=== PATIENT | female | born 1990 | race Caucasian/White ===

== ENCOUNTER 2016-12-08 12:33 | Emergency (ER) | payer SELFPAY ==
[~2016-12-08] VITALS: Ht 175.3 cm; Wt 64.0 kg
[2016-12-08] MEDS ORDERED: SODIUM CHLOR 0.9% 1000 ML INJ 1,000 ML IV ONE (12:40)
[2016-12-08 12:44] VITALS: BP 126/78; PULSE 115; RESP 18; TEMP 98.1; O2SAT 98
[2016-12-08] MEDS ORDERED: SODIUM CHLORIDE 0.9% FLUSH 10 ML FLUSH IVF PRN (12:45)
--- NOTE | 2016-12-08 12:49 | PD ---
HPI Chief Complaint: overdose Time Seen by Provider: 12:40 Travel History International Travel<30 days: No Contact w/Intl Traveler<30days: No History of Present Illness HPI 26 YO F with PMH of IVDA presents to the ED for evaluation after overdose. Patient admits to injecting "$20 of heroin" this morning. She states that she has been in recovery, using Suboxone by prescription for the last 2 months, but has been buying it on the street for an additional 2 months. Per EMS report the patient was cyanotic, apneic, required rescue breathing on their arrival. She became responsive and alert spontaneously over the course of transportation. On presentation the patient is tearful, alert, oriented. She states this was an accidental overdose. She denies SI, headache, dizziness, vision changes, fevers , chills, CP, palpitations, SOB, abdominal pain, N/V, dysuria, risk of . LMP 11/28/16. She denies alcohol or other illicit substance use. She is a smoker. The patient is very concerned that her children will be taken away if CPS finds out of today's events. Her children are living in foster care as the patient has an open DCF case. PFSH Past Medical History ADHD: Yes Anemia: Yes (DURING 2 YEARS AGO) Arthritis: No Asthma: Yes Autoimmune Disease: No Blood Disorders: Yes Bipolar Disorder: Yes (PAST SELF INFLICTED CUTTING, THREATS TO KILL MOTHER) Anxiety: Yes Depression: Yes Heart Rhythm Problems: No Cancer: No Cardiovascular Problems: No High Cholesterol: No Chemotherapy: No Chest Pain: No Congestive Heart Failure: No Cerebrovascular Accident: No Diabetes: No Diminished Hearing: No Endocrine: No Glaucoma: No Genitourinary: No Headaches: Yes (REPORTS FREQUENT HEADACHES IN THE PAST) Hepatitis: No Hiatal Hernia: No Hypertension: No Immune Disorder: No Musculoskeletal: No Neurologic: No Psychiatric: Yes (ADHD, Bipolar,substance abuse) Reproductive: No Respiratory: No Immunizations Current: Yes Migraines: No Radiation Therapy: No Seizures: No Sickle Cell Disease: No Thyroid Disease: No Ulcer: No : 6 Para: 3 Miscarriage: 3 : 2 Dilation and Curettage (D&C): Yes Past Surgical History Abdominal Surgery: No AICD: No Appendectomy: No Arteriovenous Shunt: No Cardiac Surgery: No Section: No Cholecystectomy: No Ear Surgery: No Endocrine Surgery: No Eye Surgery: No Genitourinary Surgery: No Gynecologic Surgery: No Insulin Pump: No Joint Replacement: No Oral Surgery: No Pacemaker: No Thoracic Surgery: No Other Surgery: No Social History Alcohol Use: Yes (occ) Tobacco Use: Yes (one pack per day) Substance Use: Yes (opiates, benzos, cocaine, marijuana) Allergies-Medications (Allergen,Severity, Reaction): Coded Allergies: Sulfa (Sulfonamide Antibiotics) (Unverified Allergy, Unknown, 12/08/16) Reported Meds & Prescriptions Reported Meds & Active Scripts Active Reported Suboxone Sublingual Film (Buprenorphine-Naloxone Sublingual Film) 8-2 Mg Film 1 Film SL Unique ID number required: Review of Systems Except as stated in HPI: all other systems reviewed are Neg Physical Exam Narrative GENERAL: Well-nourished, well-developed tearful white female in no acute distress.. SKIN: Focused skin assessment warm/dry. Multiple tattoos. HEAD: Normocephalic. EYES: No scleral icterus. No injection or drainage. Pupils pinpoint bilaterally. NECK: Supple, trachea midline. No JVD or lymphadenopathy. CARDIOVASCULAR: Regular rate and rhythm without murmurs, gallops, or rubs. 2+ DP and radial pulses bilaterally. RESPIRATORY: Breath sounds clear and equal bilaterally. No accessory muscle use. GASTROINTESTINAL: Abdomen soft, non-tender, nondistended. No palpable masses. Active bowel sounds. MUSCULOSKELETAL: No cyanosis, or edema. Noted to walk with a normal gait. NEUROLOGICAL: Awake and alert. Cranial nerves II through XII intact. Motor and sensory grossly within normal limits. Five out of 5 muscle strength in all muscle groups. Normal speech. BACK: Nontender without obvious deformity. No CVA tenderness. Data Data Last Documented VS Vital Signs Date Time Temp Pulse Resp B/P (MAP) Pulse Ox O2 Delivery O2 Flow Rate FiO2 12/08/16 16:58 98.1 94 13 112/73 (86) 100 Room Air 12/08/16 14:16 3.00 Orders Orders Electrocardiogram (12/08/16 12:40) Complete Blood Count With Diff (12/08/16 12:40) Comprehensive Metabolic Panel (12/08/16 12:40) Urinalysis - C+S If Indicated (12/08/16 12:40) Chest, Single Ap (12/08/16 12:40) Arterial Blood Gas (Abg) (12/08/16 12:40) Blood Glucose (12/08/16 12:40) Iv Access Insert/Monitor (12/08/16 12:40) Ecg Monitoring (12/08/16 12:40) Oximetry (12/08/16 12:40) Sodium Chloride 0.9% Flush (Ns Flush) (12/08/16 12:45) Sodium Chlor 0.9% 1000 Ml Inj (Ns 1000 M (12/08/16 12:40) Call Poison Control (12/08/16 12:40) Drug Screen, Random Urine (12/08/16 12:40) Alcohol (Ethanol) (12/08/16 12:40) Salicylates (Aspirin) (12/08/16 12:40) Tylenol (Acetaminophen) (12/08/16 12:40) Ed Urine Pregnancytest Poc (12/08/16 12:40) Diet Regular Basic (12/08/16 Lunch) Labs Laboratory Tests Test 12/08/16 12:54 12/08/16 13:00 12/08/16 19:05 Blood Gas Puncture Site RT BRACHIAL Blood Gas Patient Temperature 98.6 Blood Gas HCO3 26 mmol/L Blood Gas Base Excess 1.1 mmol/L Blood Gas Oxygen Saturation 87 % Arterial Blood pH 7.38 Arterial Blood Partial Pressure CO2 45 mmHg Arterial Blood Partial Pressure O2 63 mmHG Arterial Blood Oxygen Content 16.1 Vol % Arterial Blood Carboxyhemoglobin 4.4 % Arterial Blood Methemoglobin 0.5 % Blood Gas Hemoglobin 13.2 G/DL Blood Gas Inspired Oxygen 21 % White Blood Count 6.2 TH/MM3 Red Blood Count 4.47 MIL/MM3 Hemoglobin 13.2 GM/DL Hematocrit 38.5 % Mean Corpuscular Volume 86.2 FL Mean Corpuscular Hemoglobin 29.6 PG Mean Corpuscular Hemoglobin Concent 34.3 % Red Cell Distribution Width 12.8 % Platelet Count 270 TH/MM3 Mean Platelet Volume 7.7 FL Neutrophils (%) (Auto) 53.3 % Lymphocytes (%) (Auto) 34.8 % Monocytes (%) (Auto) 7.4 % Eosinophils (%) (Auto) 3.7 % Basophils (%) (Auto) 0.8 % Neutrophils # (Auto) 3.3 TH/MM3 Lymphocytes # (Auto) 2.1 TH/MM3 Monocytes # (Auto) 0.5 TH/MM3 Eosinophils # (Auto) 0.2 TH/MM3 Basophils # (Auto) 0.0 TH/MM3 CBC Comment DIFF FINAL Differential Comment Blood Urea Nitrogen 18 MG/DL Creatinine 0.76 MG/DL Random Glucose 91 MG/DL Total Protein 7.5 GM/DL Albumin 4.0 GM/DL Calcium Level 8.7 MG/DL Alkaline Phosphatase 102 U/L Aspartate Amino Transf (AST/SGOT) 22 U/L Alanine Aminotransferase (ALT/SGPT) 33 U/L Total Bilirubin 0.3 MG/DL Sodium Level 142 MEQ/L Potassium Level 3.6 MEQ/L Chloride Level 107 MEQ/L Carbon Dioxide Level 26.7 MEQ/L Anion Gap 8 MEQ/L Estimat Glomerular Filtration Rate 93 ML/MIN Salicylates Level 2.8 MG/DL Acetaminophen Level LESS THAN 2.0 MCG/ML Ethyl Alcohol Level LESS THAN 3 MG/DL Urine Color YELLOW Urine Turbidity HAZY Urine pH 5.5 Urine Specific [place] 1.037 Urine Protein 30 mg/dL Urine Glucose (UA) NEG mg/dL Urine Ketones TRACE mg/dL Urine Occult Blood NEG Urine Nitrite NEG Urine Bilirubin NEG Urine Urobilinogen LESS THAN 2.0 MG/DL Urine Leukocyte Esterase NEG Urine RBC 2 /hpf Urine WBC 6 /hpf Urine Squamous Epithelial Cells 2 /hpf Urine Amorphous Sediment RARE Urine Bacteria RARE /hpf Urine Mucus MANY /lpf Microscopic Urinalysis Comment CULT NOT INDICATED Urine Opiates Screen POS Urine Barbiturates Screen NEG Urine Amphetamines Screen POS Urine Benzodiazepines Screen NEG Urine Cocaine Screen POS Urine Cannabinoids Screen POS MDM Medical Decision Making Medical Screen Exam Complete: Yes Emergency Medical Condition: Yes Differential Diagnosis accidental overdose versus opioid abuse versus IVDA versus acute opioid intoxication versus Narrative Course 26 YO F with PMH of IVDA presents to the ED for evaluation after overdose. Patient admits to injecting "$20 of heroin" this morning. She states that she has been in recovery, using Suboxone by prescription for the last 2 months, but has been buying it on the street for an additional 2 months. Per EMS report the patient was cyanotic, apneic, required rescue breathing on their arrival. She became responsive and alert spontaneously over the course of transportation. On presentation the patient is tearful, alert, oriented. She states this was an accidental overdose. She denies SI, headache, dizziness, vision changes, fevers , chills, CP, palpitations, SOB, abdominal pain, N/V, dysuria, risk of . LMP 11/28/16. The patient is very concerned that her children will be taken away if CPS finds out of today's events. Her children are living in foster care as the patient has an open DCF case. Vitals reviewed. Physical exam reveals an tearful, alert white female in no acute distress. Pupils pinpoint bilaterally. No focal neuro deficits. No appreciable M/R/G. Chest CTAB. Abdomen soft, nontender. No CVA tenderness. No lower extremity edema. IV was established. Patient was administered 1 L normal saline bolus. EKG: Rate 97, sinus rhythm. NC interval 135, QRS 88, QTC 405. Normal axis. No acute ST changes. Reviewed by Dr. Ordonez. ABG: PH 7.38 HCO3 26 PCO2 245 O2 sat 87%. Patient was placed on 2L O2 NC for 2 hours. CXR: No acute disease per radiology read. No concerning abnormalities of the CBC or CMP. Salicylates 2.8. Acetaminophen less than 2. EtOH less than 3. ED bedside test negative. UA: No culture indicated. Tox screen: Positive for opiates, amphetamines, cocaine, cannabinoids Poison control recommends monitoring the patient for 8 hours. On recheck the patient is regretful, tearful. She has no somatic complaints. O2 discontinued, sats 90% and above ORA. Patient was observed for 8 hours in the emergency room. Vitals remained stable. She is instructed to follow-up with [facility] for outpatient treatment of substance abuse. She is stable and discharged home. Diagnosis Primary Impression: Accidental overdose of heroin Qualified Codes: T40.1X1A - Poisoning by heroin, accidental (unintentional), initial encounter Additional Impression: Substance abuse Referrals: [facility] (Out patient) [facility] Patient Instructions: General Instructions, Methamphetamine Abuse (GEN), Narcotic Abuse (ED) Additional Instructions: Rest, hydrate. Return to normal, gentle activities as tolerated. Follow-up with [facility], [place] for outpatient treatment of substance abuse. Return to the ED for any urgent or emergent echo condition. Disposition: 01 DISCHARGE HOME Condition: Stable Jenn Espinoza Dec 08, 2016 12:49
[2016-12-08 13:05] VITALS: O2SAT 96
[2016-12-08 13:13] LABS: BLOOD GAS BASE EXCESS 1.1 mmol/L (-2-2); BLOOD GAS CARBOXYHEMOGLOBIN 4.4 % (0-4); BLOOD GAS HCO3 26 mmol/L (22-26); BLOOD GAS METHEMOGLOBIN 0.5 % (0-2); BLOOD GAS O2 HGB SATURATION 87 % (90-100); BLOOD GAS OXYGEN CONTENT 16.1 Vol % (12.0-20.0); BLOOD GAS PCO2 45 mmHg (38-42); BLOOD GAS PO2 63 mmHG (61-120); BLOOD GAS TOTAL HGB 13.2 G/DL (12.0-16.0); TEMP CORR TO 98.6
[2016-12-08 13:14] LABS: CRITICAL VALUE YES; DRAW SITE RT BRACHIAL; FIO2 21 %; NUMBER OF ARTERIAL PUNCTURES 1; STAT YES; ULNAR PULSE PRESENT
[2016-12-08 13:15] VITALS: O2SAT 94
[2016-12-08 13:48] LABS: AUTOMATED NEUTROPHIL # 3.3 TH/MM3 (1.8-7.7); BASOPHIL % 0.8 % (0.0-2.0); EOSINOPHIL # 0.2 TH/MM3 (0-0.4); EOSINOPHIL % 3.7 % (0.0-4.0); HEMATOCRIT 38.5 % (35.0-46.0); HEMO FLAGS DIFF FINAL; LYMPH % 34.8 % (9.0-44.0); LYMPHOCYTE # 2.1 TH/MM3 (1.0-4.8); MEAN CELL VOLUME 86.2 FL (80.0-100.0); MEAN CORPUSCULAR HEMOGLOBIN 29.6 PG (27.0-34.0); MEAN CORPUSCULAR HGB CONC 34.3 % (32.0-36.0); MONO % 7.4 % (0.0-8.0); NEUT % 53.3 % (16.0-70.0); PLATELET COUNT 270 TH/MM3 (150-450); RED BLOOD COUNT 4.47 MIL/MM3 (4.00-5.30); RED CELL DISTRIBUTION WIDTH 12.8 % (11.6-17.2); WHITE BLOOD COUNT 6.2 TH/MM3 (4.0-11.0)
[2016-12-08 14:01] LABS: ANION GAP 8 MEQ/L (5-15); AST (GOT) 22 U/L (15-37); BICARBONATE 26.7 MEQ/L (21.0-32.0); BLOOD UREA NITROGEN 18 MG/DL (7-18); CHLORIDE 107 MEQ/L (98-107); GLOMERULAR FILTRATION RATE 93 ML/MIN (>89); POTASSIUM 3.6 MEQ/L (3.5-5.1); SODIUM (NA) 142 MEQ/L (136-145)
[2016-12-08 14:05] LABS: ACETAMINOPHEN LESS THAN 2.0 MCG/ML (10.0-30.0); ALKALINE PHOSPHATASE 102 U/L (45-117); ALT (GPT) 33 U/L (10-53); TOTAL BILIRUBIN ADULT 0.3 MG/DL (0.2-1.0)
[2016-12-08] MEDS ORDERED: SUBO8MIS SL (14:08)
[2016-12-08 14:10] LABS: ALCOHOL LESS THAN 3 MG/DL (0-5)
--- NOTE | 2016-12-08 14:24 | RADRPT ---
EXAM DATE/TIME: 12/08/2016 13:21 [place] COMPARISON: No previous studies available for comparison. INDICATIONS : Evaluate lung status. Possible overdose. MEDICAL HISTORY : None. SURGICAL HISTORY : None. ENCOUNTER: Initial ACUITY: 1 day PAIN SCORE: 0/10 LOCATION: Bilateral chest FINDINGS: A single view of the chest demonstrates the lungs to be symmetrically aerated without evidence of mas s, infiltrate or effusion. The cardiomediastinal contours are unremarkable. Osseous structures are intact. CONCLUSION: No acute disease. Jim Dorado MD FACR on December 08, 2016 at 14:22 Board Certified Radiologist. This report was verified electronically.
[2016-12-08 16:58] VITALS: BP 112/73; PULSE 94; RESP 13; TEMP 98.1; O2SAT 100
--- NOTE | 2016-12-08 17:51 | PD ---
Data Data Last Documented VS Vital Signs Date Time Temp Pulse Resp B/P (MAP) Pulse Ox O2 Delivery O2 Flow Rate FiO2 12/08/16 16:58 98.1 94 13 112/73 (86) 100 Room Air 12/08/16 14:16 3.00 Orders Orders Electrocardiogram (12/08/16 12:40) Complete Blood Count With Diff (12/08/16 12:40) Comprehensive Metabolic Panel (12/08/16 12:40) Urinalysis - C+S If Indicated (12/08/16 12:40) Chest, Single Ap (12/08/16 12:40) Arterial Blood Gas (Abg) (12/08/16 12:40) Blood Glucose (12/08/16 12:40) Iv Access Insert/Monitor (12/08/16 12:40) Ecg Monitoring (12/08/16 12:40) Oximetry (12/08/16 12:40) Sodium Chloride 0.9% Flush (Ns Flush) (12/08/16 12:45) Sodium Chlor 0.9% 1000 Ml Inj (Ns 1000 M (12/08/16 12:40) Call Poison Control (12/08/16 12:40) Drug Screen, Random Urine (12/08/16 12:40) Alcohol (Ethanol) (12/08/16 12:40) Salicylates (Aspirin) (12/08/16 12:40) Tylenol (Acetaminophen) (12/08/16 12:40) Ed Urine Pregnancytest Poc (12/08/16 12:40) Diet Regular Basic (12/08/16 Lunch) Labs Laboratory Tests Test 12/08/16 12:54 12/08/16 13:00 Blood Gas Puncture Site RT BRACHIAL Blood Gas Patient Temperature 98.6 Blood Gas HCO3 26 mmol/L Blood Gas Base Excess 1.1 mmol/L Blood Gas Oxygen Saturation 87 % Arterial Blood pH 7.38 Arterial Blood Partial Pressure CO2 45 mmHg Arterial Blood Partial Pressure O2 63 mmHG Arterial Blood Oxygen Content 16.1 Vol % Arterial Blood Carboxyhemoglobin 4.4 % Arterial Blood Methemoglobin 0.5 % Blood Gas Hemoglobin 13.2 G/DL Blood Gas Inspired Oxygen 21 % White Blood Count 6.2 TH/MM3 Red Blood Count 4.47 MIL/MM3 Hemoglobin 13.2 GM/DL Hematocrit 38.5 % Mean Corpuscular Volume 86.2 FL Mean Corpuscular Hemoglobin 29.6 PG Mean Corpuscular Hemoglobin Concent 34.3 % Red Cell Distribution Width 12.8 % Platelet Count 270 TH/MM3 Mean Platelet Volume 7.7 FL Neutrophils (%) (Auto) 53.3 % Lymphocytes (%) (Auto) 34.8 % Monocytes (%) (Auto) 7.4 % Eosinophils (%) (Auto) 3.7 % Basophils (%) (Auto) 0.8 % Neutrophils # (Auto) 3.3 TH/MM3 Lymphocytes # (Auto) 2.1 TH/MM3 Monocytes # (Auto) 0.5 TH/MM3 Eosinophils # (Auto) 0.2 TH/MM3 Basophils # (Auto) 0.0 TH/MM3 CBC Comment DIFF FINAL Differential Comment Blood Urea Nitrogen 18 MG/DL Creatinine 0.76 MG/DL Random Glucose 91 MG/DL Total Protein 7.5 GM/DL Albumin 4.0 GM/DL Calcium Level 8.7 MG/DL Alkaline Phosphatase 102 U/L Aspartate Amino Transf (AST/SGOT) 22 U/L Alanine Aminotransferase (ALT/SGPT) 33 U/L Total Bilirubin 0.3 MG/DL Sodium Level 142 MEQ/L Potassium Level 3.6 MEQ/L Chloride Level 107 MEQ/L Carbon Dioxide Level 26.7 MEQ/L Anion Gap 8 MEQ/L Estimat Glomerular Filtration Rate 93 ML/MIN Salicylates Level 2.8 MG/DL Acetaminophen Level LESS THAN 2.0 MCG/ML Ethyl Alcohol Level LESS THAN 3 MG/DL MDM Supervised Visit with [facility]: Yes Narrative Course The history, exam, and medical decision-making in the associated midlevel provider note were completed with my assistance. I reviewed and agree with the findings presented. I attest that I had a [id number] encounter with the patient on the same day, and personally performed and documented my assessment and findings in the medical record. *My assessment and Findings: This is a 26-year-old female who presents to the emergency department having overdosed on heroin. When EMS arrived she was cyanotic with poor respirations and required rescue breathing. She was administered Narcan and improved. She's not required any repeat doses of Narcan here in the emergency department. Labs are all reassuring. Patient will be observed for several hours and discharged if she continues to maintain her respirations and oxygen saturation. Diagnosis Primary Impression: Accidental overdose of heroin Qualified Codes: T40.1X1A - Poisoning by heroin, accidental (unintentional), initial encounter Referrals: [facility] (Out patient) [facility] Patient Instructions: General Instructions, Narcotic Abuse (ED), Methamphetamine Abuse (GEN) Additional Instruction: Rest, hydrate. Return to normal, gentle activities as tolerated. Follow-up with [facility] for outpatient treatment of substance abuse. Return to the ED for any urgent or emergent echo condition. Disposition: 01 DISCHARGE HOME Condition: Stable Nikole Ordonez MD Dec 08, 2016 17:51
[2016-12-08 19:42] LABS: BACTERIA, URINE RARE /hpf; BLOOD, URINE NEG (NEG); COMMENT (UR) CULT NOT INDICATED; CULTURE IF INDICATED CULT NOT INDICATED; GLUCOSE,URINE NEG (NEG); KETONE, URINE TRACE mg/dL (NEG); MUCUS URINE MANY /lpf (OCC); NITRITE,URINE NEG (NEG); PH, URINE 5.5 (5.0-8.5); SQUAMOUS EPITHELIAL CELL URINE 2 /hpf (0-5); URINE COLOR YELLOW (YELLW/STRAW)
[2016-12-08 20:15] VITALS: BP 115/66; PULSE 113; RESP 16; O2SAT 100
--- NOTE | 2016-12-10 12:25 | EKG ---
Date Performed: 12/08/2016 Time Performed: 13:23:04 PTAGE: 26 years EKG: Sinus rhythm NONSPECIFIC T-WAVE ABNORMALITY BORDERLINE ECG PREVIOUS TRACING : 06/19/2008 17.43 T-wave flattening new from the prior tracing. DOCTOR: Otoniel Garcia Interpretating Date/Time 12/10/2016 12:24:12
== END 2016-12-08 20:37 | disposition home or self-care (01) ==
LOC: NEPC 12:33
DX: T40.1X1A Poisoning by heroin, accidental (unintentional), initial encounter (principal); R94.31 Abnormal electrocardiogram [ECG] [EKG]; F90.9 Attention-deficit hyperactivity disorder, unspecified type; D64.9 Anemia, unspecified; F31.9 Bipolar disorder, unspecified; F41.9 Anxiety disorder, unspecified; F17.200 Nicotine dependence, unspecified, uncomplicated
CPT/HCPCS: 36600; 71010; 80053; 80307; 81001; 82805; 84703; 85025; 93005; 99285; J7030

== ENCOUNTER 2017-09-04 11:07 | Emergency (ER) | payer SELFPAY ==
[~2017-09-04] VITALS: Ht 172.7 cm; Wt 74.0 kg
[~2017-09-04 11:07] MED LIST: CLIN150C14 PO; SUBO8MIS SL
[2017-09-04 11:11] VITALS: BP 119/57; PULSE 106; RESP 18; TEMP 97.9; O2SAT 95
[2017-09-04] MEDS ORDERED: PREN29TA PO (11:30)
--- NOTE | 2017-09-04 11:37 | PD ---
HPI Chief Complaint: Related Problem Time Seen by Provider: 11:15 Travel History International Travel<30 days: No Contact w/Intl Traveler<30days: No Traveled to known affect area: No History of Present Illness HPI Patient is a 26-year-old heroin user who presents emergency department for decreased sensation of activity. Patient also states she has been having some pressure from her vagina and states she thinks she passed some tissue yesterday and thinks it was a mucous plug. She continues to use heroin intermittently and has been on Suboxone, recently released from prison. She states that in general she was told that she was a little bit further along and she is now and states that she was told by ultrasound in prison that her baby is not growing at the right the expected. She denies any chest pain shortness of breath vaginal bleeding extremity pain headache fevers per PFSH Past Medical History ADHD: Yes Anemia: Yes Arthritis: No Asthma: Yes Autoimmune Disease: No Blood Disorders: Yes Bipolar Disorder: Yes Anxiety: Yes Depression: Yes Heart Rhythm Problems: No Cancer: No Cardiovascular Problems: No High Cholesterol: No Chemotherapy: No Chest Pain: No Congestive Heart Failure: No Cerebrovascular Accident: No Diabetes: No Diminished Hearing: No Endocrine: No Gastrointestinal Disorders: No Glaucoma: No Genitourinary: No Headaches: Yes Hepatitis: No Hiatal Hernia: No Heparin Induced Thrombocytopen: No Hypertension: No Immune Disorder: No Implanted Vascular Access Dvce: No Musculoskeletal: No Neurologic: No Psychiatric: Yes (ADHD, Bipolar,substance abuse) Reproductive: No Respiratory: No Immunizations Current: Yes Migraines: No Radiation Therapy: No Seizures: No Sickle Cell Disease: No Thyroid Disease: No Ulcer: No ?: LMP: 05/10/17 : 6 Para: 3 Miscarriage: 3 : 2 Dilation and Curettage (D&C): Yes Past Surgical History Abdominal Surgery: No AICD: No Appendectomy: No Arteriovenous Shunt: No Cardiac Surgery: No Section: No Cholecystectomy: No Ear Surgery: No Endocrine Surgery: No Eye Surgery: No Genitourinary Surgery: No Gynecologic Surgery: No Insulin Pump: No Joint Replacement: No Neurologic Surgery: No Oral Surgery: No Pacemaker: No Thoracic Surgery: No Other Surgery: No Social History Alcohol Use: Yes (occ) Tobacco Use: Yes (one pack per day) Substance Use: Yes (opiates, benzos, cocaine, marijuana) Allergies-Medications (Allergen,Severity, Reaction): Coded Allergies: Sulfa (Sulfonamide Antibiotics) (Unverified Allergy, Unknown, 09/04/17) Reported Meds & Prescriptions Reported Meds & Active Scripts Active Reported Plus Iron 29-1 mg ( Vit-Iron Carbonyl) 29 Mg Iron-1 Mg Tab 1 Tab PO DAILY Review of Systems Except as stated in HPI: all other systems reviewed are Neg Physical Exam Narrative GENERAL: Well-developed well-nourished nontoxic appearing female who appears much older than stated age. SKIN: Focused skin assessment warm/dry. Several track steinberg seen peer HEAD: Atraumatic. Normocephalic. EYES: Pupils equal and round. No scleral icterus. No injection or drainage. ENT: No nasal bleeding or discharge. Mucous membranes pink and moist. NECK: Trachea midline. No JVD. CARDIOVASCULAR: Regular rate and rhythm. No murmur appreciated. RESPIRATORY: No accessory muscle use. Clear to auscultation. Breath sounds equal bilaterally. GASTROINTESTINAL: Abdomen soft, non-tender, nondistended. Hepatic and splenic margins not palpable. MUSCULOSKELETAL: No obvious deformities. No clubbing. No cyanosis. No edema. NEUROLOGICAL: Awake and alert. No obvious cranial nerve deficits. Motor grossly within normal limits. Normal speech. PSYCHIATRIC: Appropriate mood and affect; insight and judgment normal. Data Data Last Documented VS Vital Signs Date Time Temp Pulse Resp B/P (MAP) Pulse Ox O2 Delivery O2 Flow Rate FiO2 09/04/17 11:11 97.9 106 18 119/57 (77) 95 Orders Orders Ed Poc Ultrasound (09/04/17 ) [facility] Medical Decision Making Medical Screen Exam Complete: Yes Emergency Medical Condition: Yes Differential Diagnosis Premature rupture of membranes, intrauterine demise, threatened miscarriage, abdominal pain and , high risk peer Narrative Course Patient 26-year-old female with a history of heroin use, she presents emergency department initially to the OB ED, without approval they referred her back down to the ER, I performed a bedside ultrasound which does confirm a single intrauterine . She has no medical complaints warrants further workup in the emergency department however will be sent to OB ED per protocol as she is past 16 weeks gestational age by my ultrasound Procedures Procedure Narrative BEDSIDE ULTRASOUND: Transabdominal views obtained of the uterus which shows single intrauterine , heart tones by M-mode to 152, she is 18 weeks 2 days by biparietal diameter. Diagnosis Primary Impression: High risk due to maternal drug abuse Qualified Codes: O99.322 - Drug use complicating , second trimester; F19.90 - Other psychoactive substance use, unspecified, uncomplicated Additional Impression: Abdominal pain affecting Referrals: [facility] Behavioral Condition: Stable Te Cook MD September 04, 2017 11:37
--- NOTE | 2017-09-04 12:40 | PD ---
HPI Chief Complaint decr FM Date Seen: September 04, 2017 Time Seen: 12:39 Travel History International Travel<30 Days: No Contact w/Intl Traveler<30Days: No Known Affected Area: No History of Present Illness HPI 26y/o @ 18.2wks by today's ED US. She has not had PNC or an US this due to incarceration. She presented today for decr FM. ED US showed 18.2wk EGA. Pt states that she felt the baby moving prior to today but nothing for the past day. She denies cramping, LOF, or VB. is c/b: -- polysubstance abuse (was on subutex in [facility] but used since release 2d ago -- crack, xanax, heroin, MJ, tobacco) -- recurrent TAB -- no PNC -- bipolar/depression (no meds) -- h/o cerclage x2 (all full term deliveries) Weeks Gestation: 18 Para: 3 : 9 History Past Medical History Narrative Medical polysubstance abuse ADHD bipolar/depression Obstetric History Obstetric History SVDx3 (cerclage with last 2) SABx1 (twins, D&C) TAB x4 Past Surgical History Narrative Surgical cerclage x2 wisdom teeth extraction (under local) Family History Family History: Negative Social History Alcohol Use: No Tobacco Use: Yes (1/2 PPD) Substance Abuse: Yes (crack, heroin, MJ, xanax) Allergies-Medications (Allergen,Severity, Reaction): Coded Allergies: Sulfa (Sulfonamide Antibiotics) (Unverified Allergy, Unknown, 09/04/17) Home Meds Reported Medications Vit-Iron Carbonyl ( Plus Iron 29-1 mg) 29 Mg Iron-1 Mg Tab, 1 TAB PO DAILY for Nutritional Supplement, #30 TAB 0 Refills 09/04/17 Discontinued Reported Medications Buprenorphine-Naloxone Sublingual Film (Suboxone Sublingual Film) 8-2 Mg Film, 1 FILM SL, FILM Unique ID number required: 12/08/16 Discontinued Scripts Clindamycin (Clindamycin) 150 Mg Cap, 300 MG PO Q6H for Infection for 10 Days, # 80 CAP 0 Refills Prov:Qiana Leigh 06/29/17 Review of Systems Except as stated in HPI: all other systems reviewed are Neg Physical Exam Vital Signs Date Time Temp Pulse Resp B/P (MAP) Pulse Ox O2 Delivery O2 Flow Rate FiO2 09/04/17 11:11 97.9 106 18 119/57 (77) 95 Narrative General: well developed, well nourished, no acute distress HEENT: normocephalic atraumatic, extraocular movements intact, neck supple Abdomen: soft, gravid, nontender, nondistended Extremities: full range of motion Skin: normal coloration, no rashes, no suspicious skin lesions noted, self- made tattoos present (home needles) Neurologic: cranial nerves 2-12 grossly intact, normal muscle tone, normal gait Psychiatric: normal mood and affect, appropriate FHTs: present Data Data Vital Signs Reviewed: Yes Orders Orders Ed Poc Ultrasound (09/04/17 ) Vital Signs (Adult) .ON ADMISSION (09/04/17 12:38) Heart (09/04/17 12:38) Ed Discharge Order (09/04/17 12:38) ^ Labor Status (09/04/17 12:38) MDM Plan 26y/o @ 18.2wks with decr FM, no PNC, polysubstance abuse. -- reassured pt on EGA and movement -- advised on substance abuse tx options -- provided clinic referrals Dispo: d/c home with precautions Diagnosis Diagnosis: Primary Impression: 18 weeks gestation of Additional Impressions: High risk due to maternal drug abuse Qualified Codes: O99.322 - Drug use complicating , second trimester; F19.90 - Other psychoactive substance use, unspecified, uncomplicated Decreased movement affecting management of in second trimester Condition: Stable Referrals: Melissa Kelley MD September 04, 2017 12:40
== END 2017-09-04 14:13 | disposition home or self-care (01) ==
LOC: NEPD 11:07 → HOBED 14:13
DX: O26.892 Other specified pregnancy related conditions, second trimester (principal); R10.9 Unspecified abdominal pain; O99.322 Drug use complicating pregnancy, second trimester; F11.90 Opioid use, unspecified, uncomplicated; O36.8120 Decreased fetal movements, second trimester, not applicable or unspecified; O99.342 Other mental disorders complicating pregnancy, second trimester; F31.9 Bipolar disorder, unspecified; F90.9 Attention-deficit hyperactivity disorder, unspecified type; O99.332 Smoking (tobacco) complicating pregnancy, second trimester; F17.210 Nicotine dependence, cigarettes, uncomplicated; Z3A.18 18 weeks gestation of pregnancy; Z88.2 Allergy status to sulfonamides